=== PATIENT | female | born 1970 | race Caucasian/White ===

== ENCOUNTER 2020-04-15 14:45 | Emergency (ER) | payer SELFPAY ==
[2020-04-15 15:05] VITALS: BP 129/80; PULSE 69; RESP 16; TEMP 36.7; O2SAT 94; BMI 43.8
[2020-04-15 16:02] LABS: Basophils % 0.7 %; Eosinophils # 0.2 10^3/uL (0.0-0.8); Eosinophils % 3.9 %; Hemoglobin 14.5 g/dL (11.5-15.3); Lymphocytes # 2.1 10^3/uL (0.8-4.8); Lymphocytes % 38.8 %; Mean Corpuscular HGB Conc 31.5 g/dL (30.0-36.0); Mean Corpuscular Hemoglobin 26.4 pg (28.0-34.0); Mean Corpuscular Volume 83.8 fL (81-99); Mean Platelet Volume 12.8 fL (7.4-10.4); Monocytes # 0.4 10^3/uL (0.2-0.9); Monocytes % 7.6 %; Neutrophils # 2.61 10^3/uL (1.8-7.7); Neutrophils % 48.8 %; Nucleated Red Blood Cells % 0 %; Platelet Count 180 10^3/cmm (130-400); Red Blood Count 5.49 10^6/uL (4.1-5.3); Red Cell Distribution Width 13.9 % (12.1-15.1); White Blood Count 5.4 10^3/uL (4.0-10.0)
[2020-04-15 16:25] LABS: Alanine Aminotransferase 420 U/L (0-33); Albumin Level 4.3 g/dL (3.5-5.2); Alkaline Phosphatase 150 IU/L (35-105); Anion Gap 13.7 (5-19); Aspartate Amino Transferase 207 U/L (0-32); Blood Urea Nitrogen 24 mg/dL (6-20); Calcium 9.4 mg/dL (8.5-10.5); Carbon Dioxide 31 mmol/L (22-29); Chloride 95 mmol/L (98-107); Globulin 3.4 g/dL (1.3-4.6); Glomerular Filtration Rate 76.9 mL/min (90-130); Glucose 186 mg/dL (65-115); HCG, Serum Qual Negative (Negative); Lipase 43 U/L (13-60); Osmolality Calculated 284 mOsm/kg (285-295); Potassium 3.7 mmol/L (3.5-5.1); Sodium 136 mmol/L (136-145); Total Bilirubin 0.8 mg/dL (0.15-1.2); Total Protein 7.7 g/dL (6.6-8.7)
--- NOTE | 2020-04-15 17:07 | ED_ITS ---
HPI - Nausea/Vomiting/Diarrhea General: Chief complaint: Nausea/Vomiting/Diarrhea Stated complaint: N/V, fever Time Seen by Provider: 04/15/20 17:06 History of Present Illness: HPI Narrative: Patient is a 49-year-old female comes to the ED with nausea, vomiting and diarrhea. Symptoms started approximately 3 days ago. She denies any prior episodes like this in the past. She is not having any current abdominal pain. Nausea and vomiting just started when she woke up 3 days ago the says she has not been able to keep any food or drink down. She is also having some diarrhea but denies any blood in the stool. Description of stool was liquid and brown-colored. She denies any blood in the emesis as well. Denies any fever, chills, chest pain, shortness of breath, epigastric pain, constipation, vaginal discharge, vaginal bleeding, dysuria or hematuria. She endorses feeling very thirsty and says her mouth is dry. This morning patient took a hot shower and it made the nausea and vomiting worse. Patient does have a past medical history of previous IV drug abuser and occasionally smokes marijuana. She denies any alcohol consumption. Associated nausea: Yes Associated symtoms: Reports nausea; Denies change in vision, chest pain, dysuria, fatigue, headache(s) or palpitations Review of Systems Const: Denies: fever(s), chills or fatigue Eyes: Denies: change in vision or eye discomfort ENMT: Denies: throat pain, odynophagia, nasal discharge or nasal congestion Card: Denies: chest pain, palpitations, edema, swelling of feet/ankles, dyspnea on exertion or orthopnea Resp: Denies: dyspnea, productive cough or non-productive cough GI: Reports: abdominal pain (mild RUQ pain), nausea, vomiting and diarrhea; Denies: constipation or hematochezia : Denies: flank pain, dysuria or hematuria Musc: Denies: neck pain, back pain or extremity swelling Skin/Breast: Denies: rash or new lesions Neuro: Denies: headache(s), numbness in extremities or weakness in extremities PFS ED PFSH: Social History Smoking and tobacco status: heavy tobacco smoker Alcohol intake: never Substance/Drug Use: never Physical Exam Narrative: EXAM NARRATIVE: Patient is a 49-year-old female that is sitting comfortably on the exam bed when I entered the room. She is showing no signs of acute distress or pain. Physical exam highlights are mild right upper quadrant tenderness upon deep palpation and dry mucous membranes of the mouth. Const: COMMON NORMALS: no acute distress, patient oriented x3 and alert GENERAL APPEARANCE: cooperative and comfortable HENMT: COMMON NORMALS: normocephalic HEAD & SCALP: normocephalic MOUTH: moist mucous membranes abnormal (dry--moderate dehydration) Details: parched THROAT: posterior oropharynx normal and uvula midline Eye: COMMON NORMALS: Equal, round and reactive pupils present and conjunctivae normal CONJUNCTIVA: Yes conjunctivae normal PUPIL: Yes Equal, round and reactive pupils present Neck/C-Spine: COMMON NORMALS: supple GENERAL: Yes normal visual inspection Resp: COMMON NORMALS: normal respiratory effort, No retractions, No use of accessory muscles and clear to auscultation bilaterally AUSCULTATION: clear to auscultation bilaterally Cardio: COMMON NORMALS: regular rate, regular rhythm, S1 normal heart sound present, S2 normal heart sound present, No gallops present (Cardio), No clicks present (Cardio), No murmurs present (Cardio) and Peripheral pulses 2+ throughout RATE: regular rate RHYTHM: regular rhythm HEART SOUNDS: S1 normal heart sound present and S2 normal heart sound present PERIPHERAL PULSES: Peripheral pulses 2+ throughout GI: COMMON NORMALS: Normal to inspection, nondistended, normoactive bowel sounds present, Soft to palpation and no masses INSPECTION: Yes central obesity PALPATION: Yes Soft to palpation and Yes Tenderness to palpation present (GI) Details: RUQ (Mild tenderness to deep palpation) : COMMON NORMALS: Yes no CVA tenderness BLADDER/KIDNEY EXAM: Yes no CVA tenderness Back/Pelvis: COMMON NORMALS: no CVA tenderness Extremity: COMMON NORMALS: normal to inspection, capillary refill normal and no pedal edema Neuro: COMMON NORMALS: patient oriented x3 and moves all extremities SENSORIUM/ORIENTATION: Yes alert Skin: COMMON NORMALS: no rashes or lesions noted GENERAL SKIN EXAM: no rashes or lesions noted and dry skin Course Reevaluation(s): Reevaluation #1: After given IV Rocephin patient had an allergic reaction where she was having diaphoresis and chest pain/tightness. She was then given IV Benadryl and IV hydrocortisone. After 20 to 30 minutes her symptoms completely resolved and she is not having any more chest pain or diaphoresis. I added patient's allergy to rocephin into her chart. Vital Signs: Vital signs: Vital Signs Temperature 98.0 F 04/15/20 15:05 Pulse Rate 67 04/15/20 23:43 Respiratory Rate 17 04/15/20 23:43 Blood Pressure 116/77 04/15/20 23:43 Pulse Oximetry 96 04/15/20 23:43 MDM - Nausea/Vomiting/Diarrhea MDM Narrative: Medical decision making narrative: Patient is a 49-year-old female who comes to the ED with nausea and vomiting and some mild right upper quadrant abdominal pain. Physical exam was remarkable for dry mucous membranes in mouth. Labs?white blood cells 5.4, UA showed bacteria, multiple white and r ed blood cells, suggestive of a UTI. Hepatitis C antibody was reactive. Ultrasound of the right upper quadrant showed no gallstones or gallbladder wall thickening, but was positive for fatty liver. Patient's nausea vomiting was controlled with 3 L of IV fluid and some Zofran and Reglan. Patient diagnosed with a UTI and acute hepatitis C. Patient was put on antibiotic and Zofran. referral was placed with case management for Dr. Rincon. Patient told to start with a clear liquid diet for the next 24 hours and advance as tolerated. Return to ED precautions given. Patient understood and agreed with plan. Lab Data: Attestation: I reviewed the patient's lab results. Labs: Lab Results 04/15/20 04/15/20 04/15/20 Range/Units 15:49 15:49 15:49 WBC 5.4 (4.0-10.0) 10^3/ uL RBC 5.49 H (4.1-5.3) 10^6/u L Hgb 14.5 (11.5-15.3) g/dL Hct 46.0 (37.0-47.0) % MCV 83.8 (81-99) fL MCH 26.4 L (28.0-34.0) pg MCHC 31.5 (30.0-36.0) g/dL RDW 13.9 (12.1-15.1) % Plt Count 180 (130-400) 10^3/c mm MPV 12.8 H (7.4-10.4) fL Neut % (Auto) 48.8 % Lymph % (Auto) 38.8 % Preble % (Auto) 7.6 % Eos % (Auto) 3.9 % Baso % (Auto) 0.7 % Neut # (Auto) 2.61 (1.8-7.7) 10^3/u L Lymph # (Auto) 2.1 (0.8-4.8) 10^3/u L Preble # (Auto) 0.4 (0.2-0.9) 10^3/u L Eos # (Auto) 0.2 (0.0-0.8) 10^3/u L Baso # (Auto) 0.0 (0.0-0.1) 10^3/u L Nucleated RBC % (a uto) 0 % Nucleated RBCs # 0.0 /100WBC PT (10.5-13.3) SECO NDS INR (0.8-1.2) APTT (23.9-36.7) SECO NDS Sodium 136 (136-145) mmol/L Potassium 3.7 (3.5-5.1) mmol/L Chloride 95 L (98-107) mmol/L Carbon Dioxide 31 H (22-29) mmol/L Anion Gap 13.7 (5-19) BUN 24 H (6-20) mg/dL Creatinine 0.8 (0.5-0.9) mg/dL GFR Calculation 76.9 L (90-130) mL/min Glucose 186 H (65-115) mg/dL Calculated Osmolal ity 284 L (285-295) mOsm/k g Calcium 9.4 (8.5-10.5) mg/dL Total Bilirubin 0.8 (0.15-1.2) mg/dL AST 207 H (0-32) U/L ALT 420 H (0-33) U/L Alkaline Phosphata se 150 H (35-105) IU/L Ammonia (11-51) umol/L Total Protein 7.7 (6.6-8.7) g/dL Albumin 4.3 (3.5-5.2) g/dL Globulin 3.4 (1.3-4.6) g/dL Lipase 43 (13-60) U/L HCG, Qual Negative (Negative) Urine Color (Yellow) Urine Appearance (CLEAR) Urine pH (5-7) Ur Specific Gravit y (1.005-1.030) Urine Protein (Negative) Urine Glucose (UA) (Normal) Urine Ketones (Negative) Urine Blood (Negative) Urine Nitrate (Negative) Urine Bilirubin (NEGATIVE) Urine Urobilinogen (Negative) mg/dL Ur Leukocyte Katheryn ase (Negative) Urine RBC (0-2) /hpf Urine WBC (0-5) /hpf Ur Squamous Epith Cells (0-5) Amorphous Sediment Urine Bacteria (NONE) Urine Mucus Ethyl Alcohol (0-10) mg/dL Hepatitis A IgM Ab (Nonreactive) Hep Bs Antigen (Nonreactive) Hep Bs Antibody (0-8.5) Hep B Core Total A b (Nonreactive) Hepatitis C Antibo dy (Nonreactive) 04/15/20 04/15/20 04/15/20 Range/Units 15:49 19:06 19:06 WBC (4.0-10.0) 10^3/ uL RBC (4.1-5.3) 10^6/u L Hgb (11.5-15.3) g/dL Hct (37.0-47.0) % MCV (81-99) fL MCH (28.0-34.0) pg MCHC (30.0-36.0) g/dL RDW (12.1-15.1) % Plt Count (130-400) 10^3/c mm MPV (7.4-10.4) fL Neut % (Auto) % Lymph % (Auto) % Preble % (Auto) % Eos % (Auto) % Baso % (Auto) % Neut # (Auto) (1.8-7.7) 10^3/u L Lymph # (Auto) (0.8-4.8) 10^3/u L Preble # (Auto) (0.2-0.9) 10^3/u L Eos # (Auto) (0.0-0.8) 10^3/u L Baso # (Auto) (0.0-0.1) 10^3/u L Nucleated RBC % (a uto) % Nucleated RBCs # /100WBC PT 14.00 H (10.5-13.3) SECO NDS INR 1.04 (0.8-1.2) APTT 28.7 (23.9-36.7) SECO NDS Sodium (136-145) mmol/L Potassium (3.5-5.1) mmol/L Chloride (98-107) mmol/L Carbon Dioxide (22-29) mmol/L Anion Gap (5-19) BUN (6-20) mg/dL Creatinine (0.5-0.9) mg/dL GFR Calculation (90-130) mL/min Glucose (65-115) mg/dL Calculated Osmolal ity (285-295) mOsm/k g Calcium (8.5-10.5) mg/dL Total Bilirubin (0.15-1.2) mg/dL AST (0-32) U/L ALT (0-33) U/L Alkaline Phosphata se (35-105) IU/L Ammonia 38 (11-51) umol/L Total Protein (6.6-8.7) g/dL Albumin (3.5-5.2) g/dL Globulin (1.3-4.6) g/dL Lipase (13-60) U/L HCG, Qual (Negative) Urine Color (Yellow) Urine Appearance (CLEAR) Urine pH (5-7) Ur Specific Gravit y (1.005-1.030) Urine Protein (Negative) Urine Glucose (UA) (Normal) Urine Ketones (Negative) Urine Blood (Negative) Urine Nitrate (Negative) Urine Bilirubin (NEGATIVE) Urine Urobilinogen (Negative) mg/dL Ur Leukocyte Katheryn ase (Negative) Urine RBC (0-2) /hpf Urine WBC (0-5) /hpf Ur Squamous Epith Cells (0-5) Amorphous Sediment Urine Bacteria (NONE) Urine Mucus Ethyl Alcohol (0-10) mg/dL Hepatitis A IgM Ab Non-reactive (Nonreactive) Hep Bs Antigen Non-reactive (Nonreactive) Hep Bs Antibody 136.7 H (0-8.5) Hep B Core Total A b Non-reactive (Nonreactive) Hepatitis C Antibo dy Reactive H (Nonreactive) 04/15/20 04/15/20 Range/Units 19:06 19:31 WBC (4.0-10.0) 10^3/ uL RBC (4.1-5.3) 10^6/u L Hgb (11.5-15.3) g/dL Hct (37.0-47.0) % MCV (81-99) fL MCH (28.0-34.0) pg MCHC (30.0-36.0) g/dL RDW (12.1-15.1) % Plt Count (130-400) 10^3/c mm MPV (7.4-10.4) fL Neut % (Auto) % Lymph % (Auto) % Preble % (Auto) % Eos % (Auto) % Baso % (Auto) % Neut # (Auto) (1.8-7.7) 10^3/u L Lymph # (Auto) (0.8-4.8) 10^3/u L Preble # (Auto) (0.2-0.9) 10^3/u L Eos # (Auto) (0.0-0.8) 10^3/u L Baso # (Auto) (0.0-0.1) 10^3/u L Nucleated RBC % (a uto) % Nucleated RBCs # /100WBC PT (10.5-13.3) SECO NDS INR (0.8-1.2) APTT (23.9-36.7) SECO NDS Sodium (136-145) mmol/L Potassium (3.5-5.1) mmol/L Chloride (98-107) mmol/L Carbon Dioxide (22-29) mmol/L Anion Gap (5-19) BUN (6-20) mg/dL Creatinine (0.5-0.9) mg/dL GFR Calculation (90-130) mL/min Glucose (65-115) mg/dL Calculated Osmolal ity (285-295) mOsm/k g Calcium (8.5-10.5) mg/dL Total Bilirubin (0.15-1.2) mg/dL AST (0-32) U/L ALT (0-33) U/L Alkaline Phosphata se (35-105) IU/L Ammonia (11-51) umol/L Total Protein (6.6-8.7) g/dL Albumin (3.5-5.2) g/dL Globulin (1.3-4.6) g/dL Lipase (13-60) U/L HCG, Qual (Negative) Urine Color Yellow (Yellow) Urine Appearance Sl cloudy A (CLEAR) Urine pH 6 (5-7) Ur Specific Gravit y 1.015 (1.005-1.030) Urine Protein Neg (Negative) Urine Glucose (UA) Norm (Normal) Urine Ketones Negative (Negative) Urine Blood 2+ H (Negative) Urine Nitrate Negative (Negative) Urine Bilirubin 1+ H (NEGATIVE) Urine Urobilinogen 8 H (Negative) mg/dL Ur Leukocyte Katheryn ase 2+ H (Negative) Urine RBC 5-10 H (0-2) /hpf Urine WBC 40-55 H (0-5) /hpf Ur Squamous Epith Cells 5-10 H (0-5) Amorphous Sediment Not Reportable Urine Bacteria 1+ H (NONE) Urine Mucus 1+ Ethyl Alcohol < 10 (0-10) mg/dL Hepatitis A IgM Ab (Nonreactive) Hep Bs Antigen (Nonreactive) Hep Bs Antibody (0-8.5) Hep B Core Total A b (Nonreactive) Hepatitis C Antibo dy (Nonreactive) Imaging Data^: US: Attestation: I personally reviewed and interpreted this imaging study as follows: Radiologist's impression: Ultrasound of gallbladder and right upper quadrant?prelim report showed no gallstones or gallbladder wall thickness. Fatty liver noted. Discharge Plan Discharge Patient Disposition: Home Clinical Impression: Hepatitis C infection Qualifiers: Viral hepatitis chronicity: acute Hepatic coma status: without hepatic coma Qualified Code(s): B17.10 - Acute hepatitis C without hepatic coma UTI (urinary tract infection) Qualifiers: Urinary tract infection type: acute cystitis Hematuria presence: with hematuria Qualified Code(s): N30.01 - Acute cystitis with hematuria Condition: Stable Prescriptions: New Zofran 4 mg tablet 4 mg PO Q8H PRN (Reason: nausea and vomiting) Qty: 30 RF: 0 dicyclomine 20 mg tablet 20 mg PO QID Qty: 30 RF: 0 cefdinir 300 mg capsule 300 mg PO BID 10 Days Qty: 20 RF: 0 Bactrim DS 800-160 mg tablet 1 tab PO BID 5 Days Qty: 10 RF: 0 No Action lisinopril-hydrochlorothiazide 20-12.5 mg tablet 1 tab PO DAILY RF: 0 phentermine 37.5 mg tablet 37.5 mg PO QAM RF: 0 propranolol 10 mg tablet 10 mg PO TID PRN (Reason: Anxiety) RF: 0 diazepam 5 mg tablet 5 mg PO BID RF: 0 buprenorphine HCl 8 mg tablet, sublingual 8 mg SUBLINGUAL Q8H RF: 0 Discharge Orders: Discharge Order (Routine); Ordered 04/15/20 Ordered By: Javier Baker Discharge Diet: Advance as tolerated and Clear Liquid Discharge Activity: Increase activity as tolerated Patient Instructions: Hepatitis C, Viral Hepatitis C (ED) Activity Restrictions/Additional Instructions: Follow-up with medical provider as directed. Case management should be contacting you in the next several days to set up an appointment with the internal medicine doctor here at [facility] [place]. Take medications as prescribed. The dicyclomine is for abdominal pain/cramping so take that as needed for abdominal cramping pain. Start with a clear liquid diet for the next 24 hours then slowly advance diet as tolerated. Return to the ER or your medical provider if condition worsens. Please read and understand discharge instructions. If any questions, please ask. Discharge Date/Time: 04/15/20 23:48 Coding Level of Care Code ED Histologic Aide for Jesica Fwayah Exam Comprehensive
[2020-04-15 17:19] LABS: Slide Review Slide Review Perform
--- NOTE | 2020-04-15 17:24 | US_ITS ---
WS: [id number] ULTRASOUND ABDOMEN LIMITED CLINICAL INFORMATION: n/v with mild RUQ tenderness COMPARISON: None. FINDINGS: Liver Size: Normal. Craniocaudal length: 13.0 cm. Echogenicity: Coarse Surface nodularity: None. Mass (size and location): None. Bile ducts Intrahepatic ducts: Normal. Common bile duct diameter: 0.6 cm. Gallbladder Normal. Gallstones: None. Gallbladder sludge: None. Gallbladder wall thickening: None. Pericholecystic fluid: None. Sonographic Ambriz sign: Absent. Pancreas Normal as visualized. Right kidney: Normal. Hydronephrosis: None. Size: 11.9 cm x 7.1 cm x 5.3 cm. Abdominal aorta and IVC Visualized portions are normal. Ascites: None. US/US gall bladder [id number] IMPRESSION: 1. Diffuse fatty infiltration liver. 2. Normal gallbladder. 3. No hydronephrosis in right kidney.
[2020-04-15] MEDS: ondansetron 2 mg/ML SDV 2 mL 4 MG IVP (18:08)
[2020-04-15] MEDS: sodium chloride 0.9% 1,000 ML 999 ML IV ×2 (18:09→20:28)
[2020-04-15 18:14] VITALS: RESP 18; O2SAT 98
[2020-04-15] MEDS: morphine 4 mg/mL SDV 1 mL IVP ×2 (18:14→20:26)
[2020-04-15 18:18] LABS: Hepatitis A Antibody IgM Non-Reactive (Nonreactive); Hepatitis B Core AB, Total Non-Reactive (Nonreactive); Hepatitis B Surface AB 136.7 (0-8.5); Hepatitis B Surface Antigen Non-Reactive (Nonreactive); Hepatitis C Virus Antibody Reactive (Nonreactive)
[2020-04-15 19:19] LABS: Partial Thromboplastin Time 28.7 SECONDS (23.9-36.7)
[2020-04-15 19:22] LABS: INR 1.04 (0.8-1.2)
[2020-04-15 19:23] LABS: Ammonia 38 umol/L (11-51)
[2020-04-15 19:31] LABS: Alcohol Level < 10 mg/dL (0-10)
[2020-04-15 19:56] LABS: Add Urine Microscopic? YES; Bilirubin Urine 1+ (NEGATIVE); Blood Urine 2+ (Negative); Glucose Urine UA Norm (Normal); Ketones Urine Negative (Negative); Leukocyte Esterase Urine 2+ (Negative); Nitrate Urine Negative (Negative); Protein Urine Neg (Negative); Specific Gravity, Urine 1.015 (1.005-1.030); Urine Color Yellow (Yellow); Urobilinogen Urine 8 mg/dL (Negative); pH Urine 6 (5-7)
[2020-04-15 19:57] LABS: Add Urine Culture? Yes; Bacteria Urine 1+; Mucus Urine 1+; WBC Urine 40-55 /hpf (0-5)
[2020-04-15] MEDS: metoclopramide 5 mg/mL SDV 2 mL 10 MG IVP (20:25)
[2020-04-15 20:26] VITALS: RESP 18; O2SAT 98
[2020-04-15] MEDS: cefTRIAXone 1,000 MG in sodium chloride 0.9% (plus) 50 ML 100 MG IV (21:21)
--- NOTE | 2020-04-15 22:20 | ECG_ITS ---
[facility] Test Date: 2020-04-15 Pat Name: Trang Miles Department: Room: Gender: Female Holistic Pulser: : 1970 Requested By: Javier Baker Order Number: [id number] Dumas MD: Walter Knowles M.D. Measurements Intervals [place] Rate: 80 P: 47 KS: 136 QRS: 66 QRSD: 105 T: 58 QT: 395 QTc: 457 Interpretive Statements SINUS RHYTHM MODERATE ST DEPRESSION [0.05+ mV ST DEPRESSION] Compared to ECG 03/30/2018 12:13:34 ST (T wave) deviation now present Electronically Signed On 04-16-2020 16:15:33 CDT by Walter Knowles M.D. [id number] f
[2020-04-15] MEDS: hydrocortisone 100 mg/2 mL SDV IVP (22:23)
[2020-04-15] MEDS: diphenhydrAMINE 50 mg/mL SDV 1mL IVP (22:24)
--- NOTE | 2020-04-15 22:26 | PC.NURSE ---
EKG done at 2220 and shown to ER doctor
[2020-04-15] MEDS: diazePAM 5 mg Tablet PO (22:48)
--- NOTE | 2020-04-15 22:48 | PC.NURSE ---
PT NOTED TO HAVE A NEGATIVE REACTION TO ROCEPHIN. C/O ANXIETY, CHEST PRESSURE, DIAPHORESIS AND SOB. PT GIVEN MEDS ORDERED. BARAK CONT TO CLOSELY MONITER
[2020-04-15 23:23] VITALS: RESP 18; O2SAT 97
[2020-04-15] MEDS: morphine 4 mg/mL SDV 1 mL 2 MG IVP (23:23)
[2020-04-15 23:43] VITALS: BP 116/77; PULSE 67; RESP 17; O2SAT 96
--- NOTE | 2020-04-16 09:05 | PC.SOCIAL ---
Called and left a voicemail for Dr. Rincon office to set up an appointment. I also faxed over the patients facesheet and order. The office is closed on Fridays.
--- NOTE | 2020-04-19 15:21 | PC.SOCIAL ---
Called and Spoke with Dr. Rincon office, she stated that she received the fax and will call the patient for an appointment.
--- NOTE | 2020-04-21 09:57 | DCPLANNER ---
tactical air control party manager had message to schedule a follow up appointment for patient with Dr. Huertas office. This case investigator had message that a referral had been sent, and was confirmed that it was received and that clinic will call patient with appointment information. This case investigator called the office of Dr. Rincon, spoke with Anny, was told that they did not have a referral for patient, case investigator gave clinic patients information. tactical air control party manager was told that patients information would be given to Carrie to review and schedule an appointment. Clinic will call patient with appointment information. tactical air control party manager will call clinic for appointment information.
--- NOTE | 2020-04-23 13:49 | DCPLANNER ---
Addendum entered by Claritza Chaidez 05/05/20 08:07: Letter that director of casework services sent patient came back to director of casework services stating that address was not deliverable to, and unable to forward. Original Note: vegetable farm manager called patient at [phone], and unable to speak with patient at either of these numbers. vegetable farm manager also called [phone], patients sister phone number, which was not the patients sister. vegetable farm manager was unable to reach patient at any numbers on face sheet. vegetable farm manager sent patient a letter to contact director of casework services or the office of Dr. Rincon to schedule an appointment.
== END 2020-04-15 23:48 | disposition home or self-care (01) ==
PROVIDERS: Nurse Practitioner Family; Emergency Provider Physician Assistant
DX: B17.10 Acute hepatitis C without hepatic coma (principal); N30.01 Acute cystitis with hematuria; F17.210 Nicotine dependence, cigarettes, uncomplicated
CPT/HCPCS: 12345; 36415; 76705; 80053; 80307; 81001; 81003; 82140; 83690; 84703; 85025; 85610; 85730; 86705; 86706; 86709; 86803; 87086; 87340; 93005; 96361; 96365; 96375; 96376; 99282; 99284; J0696; J1200; J1720; J2270; J2405; J2765; J7030

== ENCOUNTER → 2020-09-23 08:25 | Outpatient (BNVA) | payer OTHER, SELFPAY | PROVIDERS: Visit Provider Nurse Practitioner Family | DX: Z20.828 Contact with and (suspected) exposure to other viral communicable diseases (principal); J06.9 Acute upper respiratory infection, unspecified | CPT/HCPCS: 87635 ==

== ENCOUNTER 2024-01-31 23:27 | Emergency (ER) | payer MEDICAID, SELFPAY ==
--- NOTE | 2024-01-31 23:30 | ECG_ITS ---
[facility] Test Date: 2024-01-31 Pat Name: Trang Miles Department: Room: Gender: Female Nightclub Manager: : 1970 Requested By: Major Rosa Order Number: [id number] Piter MD: Jayson Ruiz M.D. Measurements Intervals [place] Rate: 92 P: 48 ID: [id number] QRS: 52 QRSD: 103 T: 38 QT: 345 QTc: 428 Interpretive Statements SINUS RHYTHM Normal EKG Compared to ECG 04/15/2020 22:23:53 ST (T wave) deviation no longer present Electronically Signed On 02-01-2024 8:15:54 CDT by Jayson Ruiz M.D. [email or web address] [email or web address].[employer]/store/NU/[id number] f
--- NOTE | 2024-01-31 23:30 | XRR_ITS ---
PROCEDURE INFORMATION: Exam: XR Chest Exam date and time: 01/31/2024 11:55 PM Age: 53 years old Clinical indication: Angina; Additional info: Cp TECHNIQUE: Imaging protocol: Radiologic exam of the chest. Views: 1 view. COMPARISON: CR XR chest 2V* [id number] 03/30/2018 12:23 PM FINDINGS: Lungs: Bibasilar atelectasis versus minimal infiltrate. Pleural spaces: Unremarkable. No pleural effusion. No pneumothorax. Heart/Mediastinum: Cardiomegaly. Bones/joints: Unremarkable. XR/XR chest 1V portable [id number] IMPRESSION: 1. Bibasilar atelectasis versus minimal infiltrate. 2. Cardiomegaly.
[2024-01-31 23:34] VITALS: BP 180/120; PULSE 94; RESP 18; TEMP 36.6; O2SAT 92
--- NOTE | 2024-01-31 23:43 | ED_ITS ---
HPI - Chest Pain 2 General: Chief Complaint: Chest Pain Stated Complaint: chest pain ribs and back Time Seen by Provider: 01/31/24 23:30 Source: patient Mode of arrival: ambulatory Limitations: no limitations History of Present Illness: 53-year-old female states that she is at family's house a week ago and had a fall she states she did hit her left side of her chest on the ground she has been having left-sided chest pain since then states got worse today states is worse with movement and palpation states pain is sharp in nature rates it a 7 out of 10 currently. Associated symptoms: Deny abdominal pain, dyspnea, fever(s), nausea or vomiting Review of Systems 2 Const: Denies: fever(s), chills, body aches or change in appetite ENMT: Denies: throat pain or dental pain Card: Reports: chest pain Resp: Denies: dyspnea GI: Denies: abdominal pain, nausea, vomiting or diarrhea : Denies: dysuria Musc: Denies: neck pain or back pain Skin/Breast: Denies: rash Neuro: Denies: headache(s) PFSH ED 2 PFSH: Social History Smoking and tobacco/nicotine status: heavy tobacco/nicotine user Alcohol intake: never Substance/Drug Use: never Physical Exam 2 Const: COMMON NORMALS: no acute distress, patient oriented x3 and healthy appearing HENMT: COMMON NORMALS: normocephalic and atraumatic HEAD & SCALP: n ormocephalic and atraumatic Eye: COMMON NORMALS: conjunctivae normal CONJUNCTIVA: Yes conjunctivae normal Neck/C-Spine: COMMON NORMALS: full ROM and supple Chest: COMMONS NORMALS: normal inspection of the chest OTHER: Tenderness over left lateral posterior chest reproduces pain Resp: COMMON NORMALS: normal respiratory effort, No retractions, No use of accessory muscles and clear to auscultation bilaterally AUSCULTATION: clear to auscultation bilaterally Cardio: COMMON NORMALS: regular rate, regular rhythm and No murmurs present (Cardio) RATE: regular rate RHYTHM: regular rhythm Extremity: COMMON NORMALS: normal to inspection and full ROM Neuro: COMMON NORMALS: patient oriented x3, moves all extremities and no focal motor deficits Psych: COMMON NORMALS: mental status grossly normal, Normal thought process present and cooperative THOUGHT PROCESS: Normal thought process present Skin: COMMON NORMALS: no rashes or lesions noted and no wounds GENERAL SKIN EXAM: no rashes or lesions noted Course 2 Vital Signs: Vital signs: Vital Signs Temperature 97.9 F 01/31/24 23:34 Pulse Rate 94 01/31/24 23:34 Respiratory Rate 18 01/31/24 23:34 Blood Pressure 180/120 01/31/24 23:34 Pulse Oximetry 92 01/31/24 23:34 Oxygen Delivery Me thod Room Air 01/31/24 23:34 MDM - Chest Pain Medical Decision Making Patient presents for chest pains likely chest wall pain from her fall she is some slight atelectasis likely from not taking full breaths will start on antibiotics for possible pneumonia we will get her incentive spirometry will prescribe her pain meds she has no signs of coronary syndrome no sign of pneumothorax or rib fracture. Medical Records I reviewed the patient's medical records. Lab Data I reviewed the patient's lab results. 01/31/24 23:48 01/31/24 23:48 Radiology Impressions Chest X-Ray 01/31/24 23:30 IMPRESSION: 1. Bibasilar atelectasis versus minimal infiltrate. 2. Cardiomegaly. Laboratory Results WBC 8.55 10^3/uL (3.29-11.43) 01/31/24 23:48 RBC 4.77 10^6/uL (3.85-5.65) 01/31/24 23:48 Hgb 13.40 g/dL (11.27-16.99) 01/31/24 23:48 Hct 40.8 % (36-47) 01/31/24 23:48 MCV 85.5 fl (85-98) 01/31/24 23:48 MCH 28.1 pg (27-33) 01/31/24 23:48 MCHC 32.8 g/dL (30-55) 01/31/24 23:48 RDW 13.5 % (12.1-15.1) 01/31/24 23:48 Plt Count 249 10^3/cmm (157-399) 01/31/24 23:48 MPV 11.5 fL (7.4-10.4) H 01/31/24 23:48 Neut % (Auto) 60.6 % 01/31/24 23:48 Lymph % (Auto) 28.0 % 01/31/24 23:48 Dickenson % (Auto) 6.3 % 01/31/24 23:48 Eos % (Auto) 4.4 % 01/31/24 23:48 Baso % (Auto) 0.5 % 01/31/24 23:48 Neut # (Auto) 5.18 10^3/uL (1.8-7.7) 01/31/24 23:48 Lymph # (Auto) 2.4 10^3/uL (0.8-4.8) 01/31/24 23:48 Dickenson # (Auto) 0.5 10^3/uL (0.2-0.9) 01/31/24 23:48 Eos # (Auto) 0.4 10^3/uL (0.0-0.8) 01/31/24 23:48 Baso # (Auto) 0.0 10^3/uL (0.0-0.1) 01/31/24 23:48 Nucleated RBC % (auto) 0 % 01/31/24 23:48 Nucleated RBCs # 0.0 /100WBC 01/31/24 23:48 PT 14.00 SECONDS (12.1-14.9) 01/31/24 23:48 INR 1.05 (0.8-1.2) 01/31/24 23:48 Sodium 136 mmol/L (136-145) 01/31/24 23:48 Potassium 4.1 mmol/L (3.5-5.1) 01/31/24 23:48 Chloride 96 mmol/L (98-107) L 01/31/24 23:48 Carbon Dioxide 29 mmol/L (22-29) 01/31/24 23:48 Anion Gap 15.1 (5-19) 01/31/24 23:48 BUN 9 mg/dL (6-20) 01/31/24 23:48 Creatinine 0.6 mg/dL (0.5-0.9) 01/31/24 23:48 GFR Calculation 105.4 mL/min (90-130) 01/31/24 23:48 Glucose 346 mg/dL (65-115) H 01/31/24 23:48 Calculated Osmolality 294 mOsm/kg (285-295) 01/31/24 23:48 Calcium 8.7 mg/dL (8.5-10.5) 01/31/24 23:48 Total Bilirubin 0.3 mg/dL (0.15-1.2) 01/31/24 23:48 AST 21 U/L (0-32) 01/31/24 23:48 ALT 34 U/L (0-33) H 01/31/24 23:48 Alkaline Phosphatase 190 U/L (35-105) H 01/31/24 23:48 Troponin T Baseline < 6 ng/L (0-10) 01/31/24 23:48 Total Protein 7.1 g/dL (6.6-8.7) 01/31/24 23:48 Albumin 3.9 g/dL (3.5-5.2) 01/31/24 23:48 Globulin 3.2 g/dL (1.3-4.6) 01/31/24 23:48 Lipase 41 U/L (13-60) 01/31/24 23:48 All radiology interpretation(s) finalized by discharge EKG Data EKG 1: I personally reviewed and interpreted this EKG as follows: EKG interpretation date: 01/31/24 EKG interpretation time: 23:29 Interpretation: nsr hr [address] or t wave abnormalities qrs 103 qtc 395 Discharge Plan Discharge Patient Disposition: Home Clinical Impression: Chest pain Condition: Stable Prescriptions: New hydrocodone-acetaminophen 5-325 mg tablet 1 tab PO Q6H PRN (Reason: pain) Qty: 14 0RF doxycycline hyclate 100 mg tablet 100 mg PO BID 7 Days Qty: 14 0RF No Action metformin 500 mg tablet 500 mg PO BID hydroxyzine HCl 50 mg tablet 50 mg PO QID PRN (Reason: anxiety) Qty: 120 0RF trazodone 50 mg tablet 100 mg PO .HS PRN (Reason: insomnia) Qty: 60 0RF lisinopril-hydrochlorothiazide 20-12.5 mg tablet 1 tab PO DAILY Rx Instructions: pt states she took this medication yesterday but then threw up buprenorphine HCl 8 mg tablet, sublingual 8 mg SUBLINGUAL Q8H Rx Instructions: pt states she took this medication yesterday but then threw up dicyclomine 20 mg tablet 20 mg PO QID Qty: 30 0RF Discharge Orders: Discharge ED (Routine); Ordered 02/01/24 Ordered By: Major Rosa Discharge Diet: Advance as tolerated Discharge Activity: Resume usual activity Patient Instructions: Chest Pain (ED) Coding Level of Care Code ED Contact [employer] for Jesica Oropeza
[2024-01-31 23:57] LABS: Basophils % 0.5 %; Eosinophils # 0.4 10^3/uL (0.0-0.8); Eosinophils % 4.4 %; Hematocrit 40.8 % (36-47); Lymphocytes # 2.4 10^3/uL (0.8-4.8); Mean Corpuscular HGB Conc 32.8 g/dL (30-55); Mean Corpuscular Hemoglobin 28.1 pg (27-33); Mean Corpuscular Volume 85.5 fl (85-98); Mean Platelet Volume 11.5 fL (7.4-10.4); Monocytes # 0.5 10^3/uL (0.2-0.9); Monocytes % 6.3 %; Neutrophils # 5.18 10^3/uL (1.8-7.7); Neutrophils % 60.6 %; Nucleated Red Blood Cells % 0 %; Platelet Count 249 10^3/cmm (157-399); Red Blood Count 4.77 10^6/uL (3.85-5.65); Red Cell Distribution Width 13.5 % (12.1-15.1); White Blood Count 8.55 10^3/uL (3.29-11.43)
[2024-02-01] MEDS: HYDROcodone-acetaminophen 7.5-325 mg Tablet 1 TAB PO (00:04)
[2024-02-01 00:11] LABS: INR 1.05 (0.8-1.2)
[2024-02-01 00:16] LABS: Troponin(5th) Baseline < 6 ng/L (0-10)
[2024-02-01 00:26] LABS: Alanine Aminotransferase 34 U/L (0-33); Albumin Level 3.9 g/dL (3.5-5.2); Alkaline Phosphatase 190 U/L (35-105); Anion Gap 15.1 (5-19); Aspartate Amino Transferase 21 U/L (0-32); Blood Urea Nitrogen 9 mg/dL (6-20); Calcium 8.7 mg/dL (8.5-10.5); Carbon Dioxide 29 mmol/L (22-29); Chloride 96 mmol/L (98-107); Creatinine Clr Calc Pharmacy 144.9146; Globulin 3.2 g/dL (1.3-4.6); Glomerular Filtration Rate 105.4 mL/min (90-130); Glucose 346 mg/dL (65-115); Lipase 41 U/L (13-60); Osmolality Calculated 294 mOsm/kg (285-295); Potassium 4.1 mmol/L (3.5-5.1); Sodium 136 mmol/L (136-145); Total Bilirubin 0.3 mg/dL (0.15-1.2); Total Protein 7.1 g/dL (6.6-8.7)
[2024-02-01 00:42] VITALS: BP 131/81; PULSE 87; RESP 18; O2SAT 96
== END 2024-02-01 00:53 | disposition home or self-care (01) ==
PROVIDERS: Emergency Provider Emergency Medicine
DX: R07.9 Chest pain, unspecified (principal); F17.290 Nicotine dependence, other tobacco product, uncomplicated
CPT/HCPCS: 71045; 80053; 83690; 84484; 85025; 85610; 93005; 99285

== ENCOUNTER 2024-04-11 13:05 | Emergency (ER) | payer MEDICAID, SELFPAY ==
[2024-04-11 13:18] VITALS: BP 144/85; PULSE 85; RESP 15; O2SAT 94
--- NOTE | 2024-04-11 13:22 | ED_ITS ---
HPI - Fall 2 General: Chief Complaint: Upper Respiratory Infection Stated Complaint: side pain, fall Time Seen by Provider: 04/11/24 13:15 History of Present Illness: 53-year-old female presents emergency ro om with complaint of left-sided chest pain. It is worsening takes deep breath worse when she palpates the area. She had recently fallen and then fell again she has pain whenever she takes take a deep breath or cough. No fever sweats or chills she feels like she has a hard time taking a full inspiration complaint: fall Onset (ago): day(s) Fall from: standing Place fall occurred: home Context: tripped/slipped Location of injury: chest Associated symptoms-after fall: Reports chest pain; Denies abdominal pain or neck pain Review of Systems 2 Const: Denies: fever(s) or chills Card: Reports: chest pain Resp: Denies: dyspnea GI: Denies: abdominal pain : Denies: dysuria, urinary frequency or urinary urgency Musc: Denies: neck pain or back pain Skin/Breast: Denies: rash PFSH ED 2 PFSH: Medical History Opioid use disorder, severe, on maintenance therapy, dependence Generalized anxiety disorder Social History Smoking and tobacco/nicotine status: heavy tobacco/nicotine user Alcohol intake: never Substance/Drug Use: never Physical Exam 2 Const: GENERAL APPEARANCE: cooperative ORIENTATION/CONSCIOUSNESS: Yes awake, Yes oriented to person, Yes oriented to place and Yes oriented to time HENMT: COMMON NORMALS: normocephalic, atraumatic and hearing grossly normal bilaterally HEAD & SCALP: normocephalic and atraumatic Chest: OTHER: Pain to palpation of the left lower ribs no subcutaneous emphysema Resp: COMMON NORMALS: normal respiratory effort, No retractions, No use of accessory muscles and clear to auscultation bilaterally AUSCULTATION: clear to auscultation bilaterally Cardio: COMMON NORMALS: regular rate, regular rhythm and No murmurs present (Cardio) RATE: regular rate RHYTHM: regular rhythm GI: COMMON NORMALS: Soft to palpation and No hepatosplenomegaly present A USCULTATION: Yes normoactive bowel sounds PALPATION: Yes Soft to palpation, No Tenderness to palpation present (GI), No Guarding due to palpation present (GI) and Yes No hepatosplenomegaly present Extremity: COMMON NORMALS: normal to inspection, capillary refill normal, no clubbing, cyanosis or edema, no calf tenderness and no pedal edema Neuro: SENSORIUM/ORIENTATION: Yes oriented to person, Yes oriented to place and Yes oriented to time Skin: COMMON NORMALS: no rashes or lesions noted GENERAL SKIN EXAM: no rashes or lesions noted Course 2 Vital Signs: Vital signs: Vital Signs Temperature 97.7 F 04/11/24 13:23 Pulse Rate 85 04/11/24 13:18 Respiratory Rate 15 04/11/24 13:18 Blood Pressure 144/85 04/11/24 13:18 Pulse Oximetry 94 04/11/24 13:18 Oxygen Delivery Me thod Room Air 04/11/24 13:18 MDM - Fall Medical Decision Making Rib x-rays do show fractures no pneumonia. She is on buprenorphine. Can add Tylenol as needed for that ice. Follow-up with primary care doctor. Lab Data 04/11/24 13:27 04/11/24 13:27 Radiology Impressions Ribs X-Ray 04/11/24 13:26 IMPRESSION: Left rib fractures as above. Laboratory Results WBC 7.21 10^3/uL (3.29-11.43) 04/11/24 13:27 RBC 5.05 10^6/uL (3.85-5.65) 04/11/24 13:27 Hgb 13.90 g/dL (11.27-16.99) 04/11/24 13:27 Hct 43.0 % (36-47) 04/11/24 13:27 MCV 85.1 fl (85-98) 04/11/24 13:27 MCH 27.5 pg (27-33) 04/11/24 13:27 MCHC 32.3 g/dL (30-55) 04/11/24 13:27 RDW 12.2 % (12.1-15.1) 04/11/24 13:27 Plt Count 249 10^3/cmm (157-399) 04/11/24 13:27 MPV 10.9 fL (7.4-10.4) H 04/11/24 13:27 Neut % (Auto) 58.5 % 04/11/24 13:27 Lymph % (Auto) 28.8 % 04/11/24 13:27 Roberts % (Auto) 6.5 % 04/11/24 13:27 Eos % (Auto) 5.5 % 04/11/24 13:27 Baso % (Auto) 0.4 % 04/11/24 13:27 Neut # (Auto) 4.21 10^3/uL (1.8-7.7) 04/11/24 13:27 Lymph # (Auto) 2.1 10^3/uL (0.8-4.8) 04/11/24 13:27 Roberts # (Auto) 0.5 10^3/uL (0.2-0.9) 04/11/24 13:27 Eos # (Auto) 0.4 10^3/uL (0.0-0.8) 04/11/24 13:27 Baso # (Auto) 0.0 10^3/uL (0.0-0.1) 04/11/24 13:27 Nucleated RBC % (auto) 0 % 04/11/24 13:27 Nucleated RBCs # 0.0 /100WBC 04/11/24 13:27 Sodium 135 mmol/L (136-145) L 04/11/24 13:27 Potassium 4.0 mmol/L (3.5-5.1) 04/11/24 13:27 Chloride 98 mmol/L (98-107) 04/11/24 13:27 Carbon Dioxide 28 mmol/L (22-29) 04/11/24 13:27 Anion Gap 13.0 (5-19) 04/11/24 13:27 BUN 9 mg/dL (6-20) 04/11/24 13:27 Creatinine 0.5 mg/dL (0.5-0.9) 04/11/24 13:27 GFR Calculation 130.1 mL/min (90-130) H 04/11/24 13:27 Glucose 308 mg/dL (65-115) H 04/11/24 13:27 Calculated Osmolality 290 mOsm/kg (285-295) 04/11/24 13:27 Calcium 8.7 mg/dL (8.5-10.5) 04/11/24 13:27 Total Bilirubin 0.3 mg/dL (0.15-1.2) 04/11/24 13:27 AST 29 U/L (0-32) 04/11/24 13:27 ALT 38 U/L (0-33) H 04/11/24 13:27 Alkaline Phosphatase 170 U/L (35-105) H 04/11/24 13:27 Total Protein 7.3 g/dL (6.6-8.7) 04/11/24 13:27 Albumin 3.9 g/dL (3.5-5.2) 04/11/24 13:27 Globulin 3.4 g/dL (1.3-4.6) 04/11/24 13:27 Urine Color Yellow (Yellow) 04/11/24 14:06 Urine Appearance Clear (CLEAR) 04/11/24 14:06 Urine pH 5 (5-7) 04/11/24 14:06 Ur Specific [place] 1.025 (1.005-1.030) 04/11/24 14:06 Urine Protein Neg (Negative) 04/11/24 14:06 Urine Glucose (UA) 4+ (Normal) H 04/11/24 14:06 Urine Ketones Negative (Negative) 04/11/24 14:06 Urine Blood Neg (Negative) 04/11/24 14:06 Urine Nitrate Negative (Negative) 04/11/24 14:06 Urine Bilirubin Neg (Negative) 04/11/24 14:06 Urine Urobilinogen Norm mg/dL (Negative) 04/11/24 14:06 Ur Leukocyte Esterase Trace (Negative) H 04/11/24 14:06 Urine RBC 0-4 /hpf (0-2) H 04/11/24 14:06 Urine WBC 5-10 /hpf (0-5) H 04/11/24 14:06 Ur Squamous Epith Cells 10-15 /hpf (0-5) H 04/11/24 14:06 Amorphous Sediment Not Reportable 04/11/24 14:06 Urine Bacteria Trace /hpf (NONE) 04/11/24 14:06 All radiology interpretation(s) finalized by discharge Discharge Plan Discharge Patient Disposition: Home Clinical Impression: Multiple fractures of ribs, left side, initial encounter for closed fracture Condition: Stable Prescriptions: No Action buprenorphine HCl 8 mg tablet, sublingual 8 mg SUBLINGUAL Q8H amitriptyline 50 mg tablet 50 mg PO BEDTIME Discharge Orders: Discharge ED (Routine); Ordered 04/11/24 Ordered By: Osmany Hill Discharge Diet: Usual diet Discharge Activity: Increase activity as tolerated Patient Instructions: Opioid Safety, Pain Management Activity Restrictions/Additional Instructions: Thank you for choosing [facility] for your healthcare needs today. It is very important that you follow up as instructed or that you return to the Emergency Department should you have concerns or if your condition changes or worsens in any way. You are seen today for left-sided rib pain you have multiple fractures from her previous falls. You can use ice as needed. Continue to take improved scribed buprenorphine. You can supplement Tylenol with for pain. Follow-up with your primary care doctor as needed Coding Level of Care Code ED [employer] for Jesica Oropeza
[2024-04-11 13:23] VITALS: TEMP 36.5
--- NOTE | 2024-04-11 13:26 | XR_ITS ---
WS: [id number] XR ribs LT mn 3V w CXR1V [id number] REASON FOR EXAM: fall/pain FINDINGS: Minimally displaced lateral acute/subacute left rib fractures 3 through 6. No pneumothorax. No pleural effusion. No subcutaneous emphysema. XR/XR ribs LT mn 3V w CXR1V [id number] IMPRESSION: Left rib fractures as above.
[2024-04-11 13:34] LABS: Basophils % 0.4 %; Eosinophils # 0.4 10^3/uL (0.0-0.8); Eosinophils % 5.5 %; Lymphocytes # 2.1 10^3/uL (0.8-4.8); Lymphocytes % 28.8 %; Mean Corpuscular HGB Conc 32.3 g/dL (30-55); Mean Corpuscular Hemoglobin 27.5 pg (27-33); Mean Corpuscular Volume 85.1 fl (85-98); Mean Platelet Volume 10.9 fL (7.4-10.4); Monocytes # 0.5 10^3/uL (0.2-0.9); Monocytes % 6.5 %; Neutrophils # 4.21 10^3/uL (1.8-7.7); Neutrophils % 58.5 %; Nucleated Red Blood Cells % 0 %; Platelet Count 249 10^3/cmm (157-399); Red Blood Count 5.05 10^6/uL (3.85-5.65); Red Cell Distribution Width 12.2 % (12.1-15.1); White Blood Count 7.21 10^3/uL (3.29-11.43)
[2024-04-11 14:14] LABS: Alanine Aminotransferase 38 U/L (0-33); Albumin Level 3.9 g/dL (3.5-5.2); Alkaline Phosphatase 170 U/L (35-105); Aspartate Amino Transferase 29 U/L (0-32); Blood Urea Nitrogen 9 mg/dL (6-20); Calcium 8.7 mg/dL (8.5-10.5); Carbon Dioxide 28 mmol/L (22-29); Chloride 98 mmol/L (98-107); Creatinine Clr Calc Pharmacy 170.0847; Globulin 3.4 g/dL (1.3-4.6); Glomerular Filtration Rate 130.1 mL/min (90-130); Glucose 308 mg/dL (65-115); Osmolality Calculated 290 mOsm/kg (285-295); Sodium 135 mmol/L (136-145); Total Bilirubin 0.3 mg/dL (0.15-1.2); Total Protein 7.3 g/dL (6.6-8.7)
[2024-04-11 14:28] LABS: Bilirubin Urine Neg (Negative); Blood Urine Neg (Negative); Glucose Urine UA 4+ (Normal); Ketones Urine Negative (Negative); Nitrate Urine Negative (Negative); Protein Urine Neg (Negative); Specific Gravity, Urine 1.025 (1.005-1.030); Urine Appearance Clear (CLEAR); Urine Color Yellow (Yellow); Urobilinogen Urine Norm (Negative); pH Urine 5 (5-7)
[2024-04-11 14:29] LABS: Add Urine Microscopic? YES; Bacteria Urine TRACE /hpf; Leukocyte Esterase Urine Trace (Negative); RBC Urine 0-4 /hpf (0-2)
== END 2024-04-11 15:06 | disposition home or self-care (01) ==
PROVIDERS: Emergency Provider Family Medicine
DX: S22.42XA Multiple fractures of ribs, left side, initial encounter for closed fracture (principal); Z72.0 Tobacco use; W19.XXXA Unspecified fall, initial encounter
CPT/HCPCS: 36415; 71101; 80053; 81001; 85025; 99284

== ENCOUNTER 2025-01-03 09:02 | Emergency (ER) | payer MEDICAID, SELFPAY ==
--- NOTE | 2025-01-03 09:04 | ECG_ITS ---
[email or web address] Pat Name: Trang Miles Department: Room: Gender: Female Bridge Rigger: : 1970 Requested By: Osmany Bass Order Number: [id number] Piter MD: Jayson Ruiz M.D. Measurements Intervals [place] Rate: 71 P: 54 IN: 128 QRS: 72 QRSD: 114 T: 59 QT: 422 QTc: 459 Interpretive Statements SINUS RHYTHM WITH SINUS ARRHYTHMIA Mild INTRAVENTRICULAR CONDUCTION DELAY [110+ ms QRS DURATION] NONSPECIFIC T-WAVE ABNORMALITY Compared to ECG 01/31/2024 23:29:29 Intraventricular conduction delay now present T-wave abnormality now present Electronically Signed On 01-03-2025 13:02:57 CDT by Jayson Ruiz M.D. [email or web address]
--- NOTE | 2025-01-03 09:04 | XRR_ITS ---
PROCEDURE INFORMATION: Exam: XR Chest Exam date and time: 01/03/2025 9:30 AM Age: 54 years old Clinical indication: Cough and dyspnea; Additional info: Dyspnea/cough TECHNIQUE: Imaging protocol: Radiologic exam of the chest. Views: 1 view. COMPARISON: CR XR ribs LT mn 3V w CXR1V [id number] 04/11/2024 1:31 PM FINDINGS: Lungs: Unremarkable. No consolidation or mass. Pleural spaces: Unremarkable. No pleural effusion. No pneumothorax. Heart/Mediastinum: Unremarkable. No cardiomegaly. Bones/joints: Unremarkable. XR/XR chest 1V portable [id number] IMPRESSION: No acute findings.
[2025-01-03 09:10] VITALS: BP 157/84; PULSE 80; RESP 18; TEMP 36.9; O2SAT 95; BMI 36.0
[2025-01-03 09:16] LABS: Glucose Point of Care 228 mg/dL (70-110)
[2025-01-03 09:17] LABS: Basophils # 0.1 10^3/uL (0.0-0.1); Basophils % 0.4 %; Eosinophils % 0.2 %; Hematocrit 49.7 % (36-47); Lymphocytes # 1.8 10^3/uL (0.8-4.8); Lymphocytes % 11.1 %; Mean Corpuscular HGB Conc 33.2 g/dL (30-55); Mean Corpuscular Hemoglobin 27.5 pg (27-33); Mean Corpuscular Volume 82.7 fl (85-98); Monocytes # 0.8 10^3/uL (0.2-0.9); Neutrophils # 13.77 10^3/uL (1.8-7.7); Nucleated Red Blood Cells % 0 %; Platelet Count 323 10^3/cmm (157-399); Red Blood Count 6.01 10^6/uL (3.85-5.65); Red Cell Distribution Width 13.1 % (12.1-15.1); White Blood Count 16.58 10^3/uL (3.29-11.43)
--- NOTE | 2025-01-03 09:19 | ED_ITS ---
HPI - Nausea/Vomiting/Diarrhea 2 General: Chief complaint: Nausea/Vomiting/Diarrhea Stated complaint: n/v Time Seen by Provider: 01/03/25 09:04 History of Present Illness: 54-year-old female presents emergency ro om complaining of she just does not feel well. She has had nausea and vomiting. She states he usually only has 1 bowel movement a week after having a bowel movement she began to feel unwell as she describes it. She is very anxious feels like her throat is in the chest and her chest. She has a little bit of left lower quadrant discomfort she denies any hematochezia melena hematemesis or coffee-ground emesis no dysuria urgency or frequency. Associated nausea: Yes Associated symtoms: Reports nausea; Denies chest pain or dysuria Related Data Home Medications ?Medication ?Instructions ?Recorded ?Confirmed buprenorphine HCl 8 mg sublingual 8 mg sublingual Q8H 04/15/20 01/03/25 tablet clonidine HCl 0.1 mg tablet 0.1 mg PO BEDTIME 01/03/25 01/03/25 empagliflozin 10 mg tablet 10 mg PO DAILY 01/03/25 (Jardiance) Previous Rx's ?Medication ?Instructions ?Recorded promethazine 25 mg tablet 25 mg PO Q6H PRN nausea and 01/03/25 vomiting #20 tabs Allergies Allergy/AdvReac Type Severity Reaction Status Date / Time ceftriaxone (From Rocephin) Allergy Severe ADR-Chest Verified 04/11/24 13:21 Pain vancomycin Allergy ALGY-Hives Verified 04/11/24 13:21 Review of Systems 2 Const: Denies: fever(s) or chills Card: Denies: chest pain Resp: Denies: dyspnea GI: Reports: abdominal pain, nausea, vomiting and diarrhea : Denies: dysuria, urinary frequency or urinary urgency Musc: Denies: neck pain or back pain Skin/Breast: Denies: rash PFSH ED 2 PFSH: Medical History Opioid use disorder, severe, on maintenance therapy, dependence Generalized anxiety disorder Social History Smoking and tobacco/nicotine status: heavy tobacco/nicotine user Alcohol intake: never Substance/Drug Use: never Physical Exam 2 Const: GENERAL APPEARANCE: cooperative ORIENTATION/CONSCIOUSNESS: Yes awake, Yes oriented to person, Yes oriented to place and Yes oriented to time HENMT: COMMON NORMALS: normocephalic, atraumatic and hearing grossly normal bilaterally HEAD & SCALP: normocephalic and atraumatic Resp: COMMON NORMALS: normal respiratory effort, No retractions, No use of accessory muscles and clear to auscultation bilaterally AUSCULTATION: clear to auscultation bilaterally Cardio: COMMON NORMALS: regular rate, regular rhythm and No murmurs present (Cardio) RATE: regular rate RHYTHM: regular rhythm GI: COMMON NORMALS: Soft to palpation and No hepatosplenomegaly present A USCULTATION: Yes normoactive bowel sounds PALPATION: Yes Soft to palpation, No Tenderness to palpation present (GI), No Guarding due to palpation present (GI) and Yes No hepatosplenomegaly present Extremity: COMMON NORMALS: normal to inspection, capillary refill normal, no clubbing, cyanosis or edema, no calf tenderness and no pedal edema Neuro: SENSORIUM/ORIENTATION: Yes oriented to person, Yes oriented to place and Yes oriented to time Skin: COMMON NORMALS: no rashes or lesions noted GENERAL SKIN EXAM: no rashes or lesions noted Course 2 Vital Signs: Vital signs: Vital Signs Temperature 98.4 F 01/03/25 09:10 Pulse Rate 58 L 01/03/25 11:45 Respiratory Rate 17 01/03/25 11:00 Blood Pressure 105/56 01/03/25 11:45 Pulse Oximetry 88 L 01/03/25 11:45 Oxygen Delivery Me thod Room Air 01/03/25 09:10 MDM - Nausea/Vomiting/Diarrhea Medical Decision Making Patient is extremely anxious by her own admission. She acknowledges that some of this may contribute to her discomfort. We did note that while she was here waiting for the CT to be read when she dozed off her oxygen sats decreased and encouraged her to talk with her primary care doctor about being evaluated for sleep apnea when she awakes and is breathing normal her sat improved to normal range.. For now recommend clear liquid diet can use promethazine as needed for nausea vomiting follow-up with primary care. Also noted a incidental 8 mm right lung nodule. I discussed with her that this was seen and she should have a repeat scan of it sometime within the next year through her primary care doctor. Lab Data 01/03/25 09:12 01/03/25 09:12 Radiology Impressions Chest X-Ray 01/03/25 09:04 IMPRESSION: No acute findings. Abdomen/Pelvis CT 01/03/25 09:40 IMPRESSION: 1. No acute findings. 2. 8 mm right lung nodule 3. Fatty liver 4. For patients at low risk (minimal or absent history of smoking and of other known risk factors), no routine follow-up is indicated. For patients at high risk (history of smoking or of other known risk factors), consider optional CT Chest at 12 months. (Reference: Heavenly) REFERENCES: Heavenly Elkins, et al. Guidelines for Management of Incidental Pulmonary Nodules Detected on CT Images: From the Fleischner Society 2017. Radiology. 2017;284(1):228-243. Laboratory Results WBC 16.58 10^3/uL (3.29-11.43) H 01/03/25 09:12 RBC 6.01 10^6/uL (3.85-5.65) H 01/03/25 09:12 Hgb 16.50 g/dL (11.27-16.99) 01/03/25 09:12 Hct 49.7 % (36-47) H 01/03/25 09:12 MCV 82.7 fl (85-98) L 01/03/25 09:12 MCH 27.5 pg (27-33) 01/03/25 09:12 MCHC 33.2 g/dL (30-55) 01/03/25 09:12 RDW 13.1 % (12.1-15.1) 01/03/25 09:12 Plt Count 323 10^3/cmm (157-399) 01/03/25 09:12 MPV 11.0 fL (7.4-10.4) H 01/03/25 09:12 Neut % (Auto) 83.0 % 01/03/25 09:12 Lymph % (Auto) 11.1 % 01/03/25 09:12 Todd % (Auto) 5.0 % 01/03/25 09:12 Eos % (Auto) 0.2 % 01/03/25 09:12 Baso % (Auto) 0.4 % 01/03/25 09:12 Neut # (Auto) 13.77 10^3/uL (1.8-7.7) H 01/03/25 09:12 Lymph # (Auto) 1.8 10^3/uL (0.8-4.8) 01/03/25 09:12 Todd # (Auto) 0.8 10^3/uL (0.2-0.9) 01/03/25 09:12 Eos # (Auto) 0.0 10^3/uL (0.0-0.8) 01/03/25 09:12 Baso # (Auto) 0.1 10^3/uL (0.0-0.1) 01/03/25 09:12 Nucleated RBC % (auto) 0 % 01/03/25 09:12 Nucleated RBCs # 0.0 /100WBC 01/03/25 09:12 Sodium 138 mmol/L (136-145) 01/03/25 09:12 Potassium 3.8 mmol/L (3.5-5.1) 01/03/25 09:12 Chloride 97 mmol/L (98-107) L 01/03/25 09:12 Carbon Dioxide 28 mmol/L (22-29) 01/03/25 09:12 Anion Gap 16.8 (5-19) 01/03/25 09:12 BUN 7 mg/dL (6-20) 01/03/25 09:12 Creatinine 0.6 mg/dL (0.5-0.9) 01/03/25 09:12 GFR Calculation 105.0 mL/min (90-130) 01/03/25 09:12 Glucose 238 mg/dL (65-115) H 01/03/25 09:12 POC Glucose 228 mg/dL (70-110) H 01/03/25 09:11 Calculated Osmolality 292 mOsm/kg (285-295) 01/03/25 09:12 Calcium 9.5 mg/dL (8.5-10.5) 01/03/25 09:12 Total Bilirubin 0.8 mg/dL (0.15-1.2) 01/03/25 09:12 AST 32 U/L (0-32) 01/03/25 09:12 ALT 31 U/L (0-33) 01/03/25 09:12 Alkaline Phosphatase 117 U/L (35-105) H 01/03/25 09:12 Total Protein 9.2 g/dL (6.6-8.7) H 01/03/25 09:12 Albumin 4.8 g/dL (3.5-5.2) 01/03/25 09:12 Globulin 4.4 g/dL (1.3-4.6) 01/03/25 09:12 Urine Color Dark yellow (Yellow) A 01/03/25 10:00 Urine Appearance Clear (CLEAR) 01/03/25 10:00 Urine pH 6.5 (5-7) 01/03/25 10:00 Ur Specific Noti 1.040 (1.005-1.030) H 01/03/25 10:00 Urine Protein 1+ (Negative) A 01/03/25 10:00 Urine Glucose (UA) 3+ (Normal) H 01/03/25 10:00 Urine Ketones 2+ (Negative) H 01/03/25 10:00 Urine Blood Negative (Negative) 01/03/25 10:00 Urine Nitrate Negative (Negative) 01/03/25 10:00 Urine Bilirubin Negative (Negative) 01/03/25 10:00 Urine Urobilinogen 4.0 mg/dL (Negative) H 01/03/25 10:00 Ur Leukocyte Esterase Trace (Negative) A 01/03/25 10:00 Urine RBC Rare /hpf (0-2) 01/03/25 10:00 Urine WBC 0-4 /hpf (0-5) H 01/03/25 10:00 Ur Squamous Epith Cells 5-10 /hpf (0-5) H 01/03/25 10:00 Amorphous Sediment Not Reportable 01/03/25 10:00 Urine Bacteria Trace /hpf (NONE) 01/03/25 10:00 Urine Mucus 1+ /hpf 01/03/25 10:00 Urine Yeast Trace /hpf 01/03/25 10:00 All radiology interpretation(s) finalized by discharge Discharge Plan Discharge Patient Disposition: Home Clinical Impression: Nausea and vomiting Condition: Stable Prescriptions: New promethazine 25 mg tablet 25 mg PO Q6H PRN (Reason: nausea and vomiting) Qty: 20 0RF No Action buprenorphine HCl 8 mg tablet, sublingual 8 mg SUBLINGUAL Q8H clonidine HCl 0.1 mg tablet 0.1 mg PO BEDTIME Jardiance 10 mg tablet 10 mg PO DAILY Discharge Orders: Discharge ED (Routine); Ordered 01/03/25 Ordered By: Osmany Hill Discharge Diet: Clear Liquid Discharge Activity: Increase activity as tolerated Patient Instructions: Opioid Safety, Pain Management Activity Restrictions/Additional Instructions: Thank you for choosing [facility] for your healthcare needs today. It is very important that you follow up as instructed or that you return to the Emergency Department should you have concerns or if your condition changes or worsens in any way. You were seen in the emergency room with complaint of abdominal discomfort as well as nausea and vomiting. Your laboratory tests Showed a mildly elevated white count but no other significant acute findings. Urine is mildly concentrated. Increase your fluid intake. You are also given promethazine to use as needed for nausea and vomiting and this may also make you mildly tired. Follow-up with your primary care doctor as needed. There was a nodule noted at the bottom of your right lung that should be followed up with your primary care doctor. They can do repeat imaging. This should be repeated within the next year. Print Language: Kinyarwanda Coding Level of Care Code ED [place] [employer] Operator for Jesica Oropeza
--- NOTE | 2025-01-03 09:33 | PC.PHAR ---
Pt states has taken no medication since Sunday due to being sick.
[2025-01-03 09:37] LABS: Alanine Aminotransferase 31 U/L (0-33); Albumin Level 4.8 g/dL (3.5-5.2); Alkaline Phosphatase 117 U/L (35-105); Anion Gap 16.8 (5-19); Aspartate Amino Transferase 32 U/L (0-32); Blood Urea Nitrogen 7 mg/dL (6-20); Calcium 9.5 mg/dL (8.5-10.5); Carbon Dioxide 28 mmol/L (22-29); Chloride 97 mmol/L (98-107); Globulin 4.4 g/dL (1.3-4.6); Glucose 238 mg/dL (65-115); Osmolality Calculated 292 mOsm/kg (285-295); Potassium 3.8 mmol/L (3.5-5.1); Sodium 138 mmol/L (136-145); Total Bilirubin 0.8 mg/dL (0.15-1.2); Total Protein 9.2 g/dL (6.6-8.7)
--- NOTE | 2025-01-03 09:40 | CTR_ITS ---
PROCEDURE INFORMATION: Exam: CT Abdomen And Pelvis With Contrast Exam date and time: 01/03/2025 10:45 AM Age: 54 years old Clinical indication: Abdominal pain; Additional info: Abd pain TECHNIQUE: Imaging protocol: Computed tomography of the abdomen and pelvis with contrast. Radiation optimization: All CT scans at this facility use at least one of these dose optimization techniques: automated exposure control; mA and/or kV adjustment per patient size (includes targeted exams where dose is matched to clinical indication); or iterative reconstruction. Contrast material: OMNI 350; Contrast volume: 100 ml; Contrast route: INTRAVENOUS (IV); COMPARISON: US gall bladder [id number] 04/15/2020 6:04 PM RADIATION DOSE METRICS: Total DLP (mGy-cm): 1049.45 FINDINGS: Lungs: There is an 8 mm subsolid fissural nodule lying in the right middle lobe. Liver: The liver demonstrates diffuse fatty infiltration. No evidence of liver mass. Gallbladder and biliary ducts: Normal. No calcified stones. No ductal dilation. Pancreas: Normal. No ductal dilation. Spleen: Normal. No splenomegaly. Adrenal glands: Normal. No mass. Kidneys and ureters: Normal. No hydronephrosis. Stomach and bowel: Unremarkable. No obstruction. No mucosal thickening. Appendix: No evidence of appendicitis. Intraperitoneal space: Unremarkable. No free air. No significant fluid collection. Vasculature: Unremarkable. No abdominal aortic aneurysm. Lymph nodes: Unremarkable. No enlarged lymph nodes. Urinary bladder: Unremarkable as visualized. Reproductive: Unremarkable as visualized. Bones/joints: Unremarkable. No acute fracture. Soft tissues: Unremarkable. CT/CT abdomen pelvis w con* [id number] IMPRESSION: 1. No acute findings. 2. 8 mm right lung nodule 3. Fatty liver 4. For patients at low risk (minimal or absent history of smoking and of other known risk factors), no routine follow-up is indicated. For patients at high risk (history of smoking or of other known risk factors), consider optional CT Chest at 12 months. (Reference: Heavenly) REFERENCES: Heavenly Elkins et al. Guidelines for Management of Incidental Pulmonary Nodules Detected on CT Images: From the Fleischner Society 2017. Radiology. 2017;284(1):228-243.
[2025-01-03 09:55] VITALS: BP 123/83; O2SAT 98
[2025-01-03 10:10] LABS: Bilirubin Urine Negative (Negative); Blood Urine Negative (Negative); Glucose Urine UA 3+ (Normal); Ketones Urine 2+ (Negative); Leukocyte Esterase Urine Trace (Negative); Nitrate Urine Negative (Negative); Protein Urine 1+ (Negative); Urine Appearance Clear (CLEAR); Urine Color Dark Yellow (Yellow); pH Urine 6.5 (5-7)
[2025-01-03 10:15] VITALS: PULSE 63; RESP 14; O2SAT 98
[2025-01-03 10:30] VITALS: BP 139/73; PULSE 59; RESP 20; O2SAT 96
[2025-01-03 10:31] LABS: UA Manual Slide Review YES; UA Slide Review UA Slide Review Perf
[2025-01-03 10:32] LABS: Add Urine Culture? No; Add Urine Microscopic? YES; Bacteria Urine TRACE /hpf; Mucus Urine 1+ /hpf; RBC Urine RARE /hpf (0-2); WBC Urine 0-4 /hpf (0-5)
[2025-01-03] MEDS: prochlorperazine 10 mg/2 mL Inj IVP (10:38)
[2025-01-03] MEDS: iohexol 350 mg/mL 500 mL Btl (per mL) IV (10:50)
[2025-01-03 11:00] VITALS: BP 133/86; PULSE 70; RESP 17; O2SAT 97
[2025-01-03 11:45] VITALS: BP 105/56; PULSE 58; O2SAT 88
== END 2025-01-03 11:47 | disposition home or self-care (01) ==
PROVIDERS: Emergency Provider Family Medicine
DX: R11.2 Nausea with vomiting, unspecified (principal); Z72.0 Tobacco use
CPT/HCPCS: 36415; 36416; 71045; 74177; 80053; 81001; 82962; 85025; 93005; 96374; 99285; J0780